=== PATIENT | male | born 1940 | race African-American/Black ===

== ENCOUNTER 2017-11-27 17:51 | Inpatient (IN) | payer MEDICARE ==
[~2017-11-27] VITALS: Ht 172.7 cm; Wt 77.8 kg
[2017-11-27 18:00] VITALS: BP 173/74
[2017-11-27] MEDS ORDERED: UNOBMED (18:00)
[2017-11-27] MEDS ORDERED: Morphine Sulfate 2mg/ml Inj IVP ONE (18:30)
[2017-11-27 18:34] LABS: BASOPHILS % (AUTO) 2.7 % (0.0-2.0); EOSINOPHILS % (AUTO) 6.6 % (0.0-3.0); HEMATOCRIT 35.8 % (42.0-52.0); HEMOGLOBIN 11.7 G/DL (14.2-18.0); LYMPHOCYTES % (AUTO) 20.5 % (20.0-45.0); MEAN CORPUSCULAR VOLUME 96 FL (80-99); NEUTROPHILS % (AUTO) 58.2 % (45.0-75.0); PLATELET COUNT 184 K/UL (150-450); RED BLOOD COUNT 3.72 M/UL (4.70-6.10); WHITE BLOOD COUNT 4.7 K/UL (4.8-10.8)
[2017-11-27 18:46] LABS: ANION GAP 14 mmol/L (5-15); BLOOD UREA NITROGEN 23 mg/dL (7-18); CALCIUM 10.7 MG/DL (8.5-10.1); CARBON DIOXIDE 17 MMOL/L (21-32); CHLORIDE 103 MMOL/L (98-107); CREATININE 6.2 MG/DL (0.55-1.30); POTASSIUM 4.1 MMOL/L (3.5-5.1); SODIUM 134 MMOL/L (136-145)
[2017-11-27 18:59] LABS: ALANINE AMINOTRANSFERASE 8 U/L (12-78); ALBUMIN 3.8 G/DL (3.4-5.0); ALBUMIN/GLOBULIN RATIO 0.8 (1.0-2.7); ALKALINE PHOSPHATASE 109 U/L (46-116); ASPARTATE AMINO TRANSFERASE 21 U/L (15-37); BILIRUBIN,TOTAL 0.5 MG/DL (0.2-1.0); CKMB 1.2 NG/ML (0.0-3.6); CREATINE KINASE 108 U/L (26-308)
[2017-11-27 19:50] VITALS: BP 165/72
--- NOTE | 2017-11-27 21:52 | Consultation ---
Consult Note Consult Note 77 y old- HTN ESRD-CHF- Pacer- DM- Atfib Remote kidney transplant fell a week ago - feels exteremely weak on right side of body , specifically leg- has chest pain in deep breath dialysis graft right arm pacer right upper chest [employer] Repairer Reymundo Taylor at Assessment/Plan ESRD Hypertensive Cardiac disease Weakness right LE Next HD 11/29 Orders given ? Neuro eval? Felice Kumar MD Nov 27, 2017 21:52
[2017-11-27 22:00] VITALS: BP 157/77
[2017-11-27] MEDS ORDERED: HydrALAZINE 25mg tab ORAL PRN (22:00)
[2017-11-27 22:10] VITALS: BP 149/78
--- NOTE | 2017-11-27 22:16 | Infectious Diseases Prog Note ---
Assessment/Plan Problems: (1) Weakness generalized Assessment & Plan: rule out sepsis , will send blood culture and urine culture , with close monitoring of his symptoms (2) Fall Assessment & Plan: with right hip and knee pain , will order x ray to rule out effusion or fracture (3) ESRD (end stage renal disease) Assessment & Plan: on HD , nephrology is following (4) COPD (chronic obstructive pulmonary disease) Assessment & Plan: continue inhalers and oxygen as needed (5) CHF (congestive heart failure) Assessment & Plan: continue HD , with close monitoring of daily weight Subjective Allergies: Coded Allergies: No Known Allergies (Unverified , 11/27/17) Objective Vital Signs Last 24 Hour Vital Signs Date Time Temp Pulse Resp B/P (MAP) Pulse Ox O2 Delivery O2 Flow Rate FiO2 11/27/17 22:00 97.7 60 22 157/77 95 Room Air 97.7 11/27/17 22:00 97.7 60 22 157/77 95 Room Air 11/27/17 19:50 98.5 65 18 165/72 98 Room Air 98.5 11/27/17 19:04 98.5 11/27/17 18:34 98.1 11/27/17 18:00 98.1 69 18 173/74 98 Room Air 98.1 11/27/17 18:00 60 18 Room Air 11/27/17 17:46 98.0 60 18 190/84 98 Room Air 98.1 Height (Feet): 5 Height (Inches): 8.00 Weight (Pounds): 170 Laboratory Tests Test 11/27/17 18:15 White Blood Count 4.7 K/UL (4.8-10.8) L Red Blood Count 3.72 M/UL (4.70-6.10) L Hemoglobin 11.7 G/DL (14.2-18.0) L Hematocrit 35.8 % (42.0-52.0) L Mean Corpuscular Volume 96 FL (80-99) Mean Corpuscular Hemoglobin 31.4 PG (27.0-31.0) H Mean Corpuscular Hemoglobin Concent 32.7 G/DL (32.0-36.0) Red Cell Distribution Width 13.0 % (11.6-14.8) Platelet Count 184 K/UL (150-450) Mean Platelet Volume 5.3 FL (6.5-10.1) L Neutrophils (%) (Auto) 58.2 % (45.0-75.0) Lymphocytes (%) (Auto) 20.5 % (20.0-45.0) Monocytes (%) (Auto) 12.0 % (1.0-10.0) H Eosinophils (%) (Auto) 6.6 % (0.0-3.0) H Basophils (%) (Auto) 2.7 % (0.0-2.0) H Sodium Level 134 MMOL/L (136-145) L Potassium Level 4.1 MMOL/L (3.5-5.1) Chloride Level 103 MMOL/L (98-107) Carbon Dioxide Level 17 MMOL/L (21-32) L Anion Gap 14 mmol/L (5-15) Blood Urea Nitrogen 23 mg/dL (7-18) H Creatinine 6.2 MG/DL (0.55-1.30) H Estimat Glomerular Filtration Rate mL/min (>60) Glucose Level 86 MG/DL (74-106) Calcium Level 10.7 MG/DL (8.5-10.1) H Total Bilirubin 0.5 MG/DL (0.2-1.0) Aspartate Amino Transf (AST/SGOT) 21 U/L (15-37) Alanine Aminotransferase (ALT/SGPT) 8 U/L (12-78) L Alkaline Phosphatase 109 U/L (46-116) Total Creatine Kinase 108 U/L (26-308) Creatine Kinase MB 1.2 NG/ML (0.0-3.6) Creatine Kinase MB Relative Index 1.1 Troponin I 0.045 ng/mL (0.000-0.056) C-Reactive Protein, Quantitative 3.4 mg/dL (0.00-0.90) H Pro-B-Type Natriuretic Peptide 97244 pg/mL (0-125) H Total Protein 8.7 G/DL (6.4-8.2) H Albumin 3.8 G/DL (3.4-5.0) Globulin 4.9 g/dL Albumin/Globulin Ratio 0.8 (1.0-2.7) L Current Medications Medications (Trade) Dose Ordered Sig/Rj Route PRN Reason Start Time Stop Time Status Last Admin Dose Admin Acetaminophen (Tylenol) 650 mg Q4H PRN ORAL Mild Pain/Temp > 100.5 11/27/17 22:00 12/27/17 21:59 Amlodipine Besylate (Norvasc) 10 mg DAILY ORAL 11/28/17 09:00 12/28/17 08:59 Aspirin (ASA) 81 mg DAILY ORAL 11/28/17 09:00 12/28/17 08:59 Atorvastatin Calcium (Lipitor) 20 mg BEDTIME ORAL 11/28/17 21:00 12/28/17 20:59 Docusate Sodium (Colace) 100 mg THREE TIMES A DAY ORAL 11/28/17 09:00 12/28/17 08:59 Heparin Sodium (Porcine) (Heparin 5000 units/ml) 5,000 units EVERY 12 HOURS SUBQ 11/28/17 09:00 12/28/17 08:59 Hydralazine HCl (Apresoline) 25 mg Q4HR PRN ORAL BP over 160 syst 11/27/17 22:00 12/27/17 21:59 Hydralazine HCl (Apresoline) 50 mg Q8HR ORAL 11/27/17 22:00 12/27/17 21:59 Pantoprazole (Protonix) 40 mg DAILY ORAL 11/28/17 09:00 12/28/17 08:59 Sevelamer Carbonate (Renvela) 800 mg THREE TIMES A DAY ORAL 11/28/17 09:00 12/28/17 08:59 Aye Gamboa M.D. Nov 27, 2017 22:16
--- NOTE | 2017-11-27 23:06 | Emergency Room Report ---
History of Present Illness General Chief Complaint: Chest Pain Source: Patient Present Illness HPI 77-year-old male presents ED complaining of chest pain 10 days. Pain needs left-sided, sharp, 7 out of 10, nonradiating. Worse with deep breaths. Denies fevers chills. Denies cough. History of end-stage renal disease. Gets dialysis. States he is compliant with his dialysis. No other aggravating relieving factors. Denies any other associated symptoms Allergies: Coded Allergies: No Known Allergies (Unverified , 11/27/17) Patient History Past Medical History: DM, HTN, CHF, renal disease, dialysis Past Surgical History: none Pertinent Family History: none Social History: Denies: smoking, alcohol use, drug use Immunizations: UTD Reviewed Nursing Documentation: PMH: Agreed; PSxH: Agreed Nursing Documentation-PMH Past Medical History: No History, Except For Hx Cardiac Problems: Yes - CHF dialysis Hx Hypertension: Yes Hx Diabetes: Yes Hx Dialysis: Yes Review of Systems All Other Systems: negative except mentioned in HPI Physical Exam Vital Signs Date Time Temp Pulse Resp B/P (MAP) Pulse Ox O2 Delivery O2 Flow Rate FiO2 11/27/17 17:46 98.0 60 18 190/84 98 Room Air 98.1 Sp02 EP Interpretation: reviewed, normal General Appearance: no apparent distress, alert, GCS 15, non-toxic Head: normocephalic, atraumatic Eyes: bilateral eye normal inspection, bilateral eye PERRL ENT: hearing grossly normal, normal pharynx, no angioedema, normal voice Neck: full range of motion, supple/symm/no masses Respiratory: chest non-tender, lungs clear, normal breath sounds, speaking full sentences Cardiovascular #1: regular rate, rhythm, no edema Cardiovascular #2: 2+ carotid (R), 2+ carotid (L), 2+ radial (R), 2+ radial (L) , 2+ dorsalis pedis (R), 2+ dorsalis pedis (L) Gastrointestinal: normal bowel sounds, non tender, soft, non-distended, no guarding, no rebound Rectal: deferred Genitourinary: normal inspection, no CVA tenderness Musculoskeletal: back normal, gait/station normal, normal range of motion, non- tender Neurologic: alert, oriented x3, responsive, motor strength/tone normal, sensory intact, speech normal Psychiatric: judgement/insight normal, memory normal, mood/affect normal, no suicidal/homicidal ideation Reflexes: 3+ bicep (R), 3+ bicep (L), 3+ tricep (R), 3+ tricep (L), 3+ knee (R) , 3+ knee (L) Skin: normal color, no rash, warm/dry, well hydrated Lymphatic: no adenopathy Medical Decision Making Diagnostic Impression: Primary Impression: Acute coronary syndrome Additional Impressions: CHF (congestive heart failure) Qualified Codes: I50.9 - Heart failure, unspecified ESRD (end stage renal disease) ER Course Hospital Course 77-year-old male presents ED complaining of chest pain. h/o ESRD on dialysis Differential diagnoses include: DE/unstable angina, contusion, muscle strain, PTX, rib fracture Clinical course Patient placed on stretcher. on cardiac care nurse. After initial history and physical I ordered labs, EKG, chest x-ray, morphine labs reviewed- no leukocytosis hb/hct stable, BUN/Cr elevated, K ok, trop 0.045 , BNP elevated EKG - NSR, no acute ischemic changes interpreted by me Chest x-ray- cardiomegaly, pacemaker, no fluid overload given aspirin. Case discussed with Dr. Hoffman and he agreed to accept the patient to his service for further care and support I. I feel this is a highly complex case requiring extensive working including EKG/Rhythm strip, Xray/CT/US, Blood/urine lab work, repeat exams while in ED, and administration of strong opiates/narcotics for pain control, admission to hospital or close patient follow up. Diagnosis - ACS, CHF, ESRD on dialysis admitted to telemetry in serious condition Labs Test 11/27/17 18:15 White Blood Count 4.7 K/UL (4.8-10.8) Red Blood Count 3.72 M/UL (4.70-6.10) Hemoglobin 11.7 G/DL (14.2-18.0) Hematocrit 35.8 % (42.0-52.0) Mean Corpuscular Volume 96 FL (80-99) Mean Corpuscular Hemoglobin 31.4 PG (27.0-31.0) Mean Corpuscular Hemoglobin Concent 32.7 G/DL (32.0-36.0) Red Cell Distribution Width 13.0 % (11.6-14.8) Platelet Count 184 K/UL (150-450) Mean Platelet Volume 5.3 FL (6.5-10.1) Neutrophils (%) (Auto) 58.2 % (45.0-75.0) Lymphocytes (%) (Auto) 20.5 % (20.0-45.0) Monocytes (%) (Auto) 12.0 % (1.0-10.0) Eosinophils (%) (Auto) 6.6 % (0.0-3.0) Basophils (%) (Auto) 2.7 % (0.0-2.0) Sodium Level 134 MMOL/L (136-145) Potassium Level 4.1 MMOL/L (3.5-5.1) Chloride Level 103 MMOL/L (98-107) Carbon Dioxide Level 17 MMOL/L (21-32) Anion Gap 14 mmol/L (5-15) Blood Urea Nitrogen 23 mg/dL (7-18) Creatinine 6.2 MG/DL (0.55-1.30) Estimat Glomerular Filtration Rate mL/min (>60) Glucose Level 86 MG/DL (74-106) Calcium Level 10.7 MG/DL (8.5-10.1) Total Bilirubin 0.5 MG/DL (0.2-1.0) Aspartate Amino Transf (AST/SGOT) 21 U/L (15-37) Alanine Aminotransferase (ALT/SGPT) 8 U/L (12-78) Alkaline Phosphatase 109 U/L (46-116) Total Creatine Kinase 108 U/L (26-308) Creatine Kinase MB 1.2 NG/ML (0.0-3.6) Creatine Kinase MB Relative Index 1.1 Troponin I 0.045 ng/mL (0.000-0.056) C-Reactive Protein, Quantitative 3.4 mg/dL (0.00-0.90) Pro-B-Type Natriuretic Peptide 76731 pg/mL (0-125) Total Protein 8.7 G/DL (6.4-8.2) Albumin 3.8 G/DL (3.4-5.0) Globulin 4.9 g/dL Albumin/Globulin Ratio 0.8 (1.0-2.7) EKG Diagnostic Results Rate: normal Rhythm: NSR ST Segments: no acute changes ASA given to the pt in ED: Yes Rhythm Strip Diag. Results EP Interpretation: yes Rhythm: NSR, no PVC's, no ectopy Chest X-Ray Diagnostic Results Chest X-Ray Diagnostic Results : Chest X-Ray Ordered: Yes # of Views/Limited/Complete: 1 View Indication: Chest Pain EP Interpretation: Yes Interpretation: no consolidation, no effusion, no pneumothorax, other - cardiomegaly. pacemaker Impression: Other - chf Electronically Signed by: Electronically signed by Mike Jerez MD Last Vital Signs Date Time Temp Pulse Resp B/P (MAP) Pulse Ox O2 Delivery O2 Flow Rate FiO2 11/27/17 22:00 97.7 60 22 157/77 95 Room Air 97.7 Status: improved Disposition: ADMITTED INPATIENT Condition: Serious Referrals: LORIN PRAJAPATI (PCP) Mike Jerez MD Nov 27, 2017 23:06
[2017-11-27] MEDS: HydrALAZINE 50mg tab ORAL SCH (23:25)
[2017-11-28] VITALS: BP 151/78
[2017-11-28 04:00] VITALS: BP 153/64
[2017-11-28 05:48] LABS: BASOPHILS % (AUTO) 1.4 % (0.0-2.0); EOSINOPHILS % (AUTO) 10.3 % (0.0-3.0); HEMATOCRIT 33.9 % (42.0-52.0); HEMOGLOBIN 11.1 G/DL (14.2-18.0); MEAN CORPUSCULAR VOLUME 94 FL (80-99); MONOCYTES % (AUTO) 12.9 % (1.0-10.0); NEUTROPHILS % (AUTO) 55.3 % (45.0-75.0); PLATELET COUNT 190 K/UL (150-450); RED CELL DISTRIBUTION WIDTH 13.1 % (11.6-14.8); WHITE BLOOD COUNT 4.3 K/UL (4.8-10.8)
[2017-11-28] MEDS: HydrALAZINE 50mg tab ORAL SCH ×3 (06:11→22:13)
[2017-11-28 06:35] LABS: ALANINE AMINOTRANSFERASE 15 U/L (12-78); ALBUMIN 3.4 G/DL (3.4-5.0); ALBUMIN/GLOBULIN RATIO 0.8 (1.0-2.7); ALKALINE PHOSPHATASE 96 U/L (46-116); ANION GAP 13 mmol/L (5-15); ASPARTATE AMINO TRANSFERASE 15 U/L (15-37); BILIRUBIN,TOTAL 0.3 MG/DL (0.2-1.0); BLOOD UREA NITROGEN 30 mg/dL (7-18); CALCIUM 9.9 MG/DL (8.5-10.1); CARBON DIOXIDE 22 MMOL/L (21-32); CHLORIDE 106 MMOL/L (98-107); CHOLESTEROL 145 MG/DL (< 200); CREATINE KINASE 55 U/L (26-308); CREATININE 8.1 MG/DL (0.55-1.30); FERRITIN 613 NG/ML (8-388); GAMMA GLUTAMYL TRANSPEPTIDASE 43 U/L (5-85); HDL CHOLESTEROL 52 MG/DL (40-60); PHOSPHORUS 3.4 MG/DL (2.5-4.9); POTASSIUM 3.5 MMOL/L (3.5-5.1); SODIUM 140 MMOL/L (136-145); TRIGLYCERIDES 71 MG/DL (30-150)
[2017-11-28 07:58] VITALS: BP 154/64
--- NOTE | 2017-11-28 08:06 | Cardiology Progress Note ---
Assessment/Plan Assessment/Plan The patient is seen and examined, full consult note will be dictated. Objective Last 24 Hour Vital Signs Date Time Temp Pulse Resp B/P (MAP) Pulse Ox O2 Delivery O2 Flow Rate FiO2 11/28/17 07:58 97.0 61 20 154/64 (94) 99 97.0 11/28/17 06:11 143/75 11/28/17 04:00 98.0 56 20 153/64 (93) 97 98.0 11/28/17 04:00 60 11/28/17 00:00 99.0 62 20 151/78 (102) 98 99.0 11/28/17 00:00 60 11/27/17 23:25 151/78 11/27/17 22:47 Room Air 11/27/17 22:15 62 11/27/17 22:10 97.8 63 23 149/78 (101) 97 97.8 11/27/17 22:00 97.7 60 22 157/77 95 Room Air 97.7 11/27/17 22:00 97.7 60 22 157/77 95 Room Air 11/27/17 19:50 98.5 65 18 165/72 98 Room Air 98.5 11/27/17 19:04 98.5 11/27/17 18:34 98.1 11/27/17 18:00 98.1 69 18 173/74 98 Room Air 98.1 11/27/17 18:00 60 18 Room Air 11/27/17 17:46 98.0 60 18 190/84 98 Room Air 98.1 Intake and Output 11/27/17 11/28/17 19:00 07:00 Intake Total 320 ml Balance 320 ml Intake Oral 320 ml Laboratory Tests Test 11/27/17 18:15 11/28/17 05:20 White Blood Count 4.7 K/UL (4.8-10.8) L 4.3 K/UL (4.8-10.8) L Red Blood Count 3.72 M/UL (4.70-6.10) L 3.60 M/UL (4.70-6.10) L Hemoglobin 11.7 G/DL (14.2-18.0) L 11.1 G/DL (14.2-18.0) L Hematocrit 35.8 % (42.0-52.0) L 33.9 % (42.0-52.0) L Mean Corpuscular Volume 96 FL (80-99) 94 FL (80-99) Mean Corpuscular Hemoglobin 31.4 PG (27.0-31.0) H 30.8 PG (27.0-31.0) Mean Corpuscular Hemoglobin Concent 32.7 G/DL (32.0-36.0) 32.7 G/DL (32.0-36.0) Red Cell Distribution Width 13.0 % (11.6-14.8) 13.1 % (11.6-14.8) Platelet Count 184 K/UL (150-450) 190 K/UL (150-450) Mean Platelet Volume 5.3 FL (6.5-10.1) L 5.2 FL (6.5-10.1) L Neutrophils (%) (Auto) 58.2 % (45.0-75.0) 55.3 % (45.0-75.0) Lymphocytes (%) (Auto) 20.5 % (20.0-45.0) 20.0 % (20.0-45.0) Monocytes (%) (Auto) 12.0 % (1.0-10.0) H 12.9 % (1.0-10.0) H Eosinophils (%) (Auto) 6.6 % (0.0-3.0) H 10.3 % (0.0-3.0) H Basophils (%) (Auto) 2.7 % (0.0-2.0) H 1.4 % (0.0-2.0) Sodium Level 134 MMOL/L (136-145) L 140 MMOL/L (136-145) Potassium Level 4.1 MMOL/L (3.5-5.1) 3.5 MMOL/L (3.5-5.1) Chloride Level 103 MMOL/L (98-107) 106 MMOL/L (98-107) Carbon Dioxide Level 17 MMOL/L (21-32) L 22 MMOL/L (21-32) Anion Gap 14 mmol/L (5-15) 13 mmol/L (5-15) Blood Urea Nitrogen 23 mg/dL (7-18) H 30 mg/dL (7-18) H Creatinine 6.2 MG/DL (0.55-1.30) H 8.1 MG/DL (0.55-1.30) H Estimat Glomerular Filtration Rate mL/min (>60) mL/min (>60) Glucose Level 86 MG/DL (74-106) 96 MG/DL (74-106) Calcium Level 10.7 MG/DL (8.5-10.1) H 9.9 MG/DL (8.5-10.1) Total Bilirubin 0.5 MG/DL (0.2-1.0) 0.3 MG/DL (0.2-1.0) Aspartate Amino Transf (AST/SGOT) 21 U/L (15-37) 15 U/L (15-37) Alanine Aminotransferase (ALT/SGPT) 8 U/L (12-78) L 15 U/L (12-78) Alkaline Phosphatase 109 U/L (46-116) 96 U/L (46-116) Total Creatine Kinase 108 U/L (26-308) 55 U/L (26-308) Creatine Kinase MB 1.2 NG/ML (0.0-3.6) Creatine Kinase MB Relative Index 1.1 Troponin I 0.045 ng/mL (0.000-0.056) 0.041 ng/mL (0.000-0.056) C-Reactive Protein, Quantitative 3.4 mg/dL (0.00-0.90) H Pro-B-Type Natriuretic Peptide 72310 pg/mL (0-125) H 92003 pg/mL (0-125) H Total Protein 8.7 G/DL (6.4-8.2) H 7.6 G/DL (6.4-8.2) Albumin 3.8 G/DL (3.4-5.0) 3.4 G/DL (3.4-5.0) Globulin 4.9 g/dL 4.2 g/dL Albumin/Globulin Ratio 0.8 (1.0-2.7) L 0.8 (1.0-2.7) L Hemoglobin A1c 5.5 % (4.3-6.0) Uric Acid 2.5 MG/DL (2.6-7.2) L Phosphorus Level 3.4 MG/DL (2.5-4.9) Magnesium Level 2.1 MG/DL (1.8-2.4) Ferritin 613 NG/ML (8-388) H Gamma Glutamyl Transpeptidase 43 U/L (5-85) Triglycerides Level 71 MG/DL (30-150) Cholesterol Level 145 MG/DL (< 200) LDL Cholesterol 72 mg/dL (<100) HDL Cholesterol 52 MG/DL (40-60) Cholesterol/HDL Ratio 2.8 (3.3-4.4) L Vitamin B12 Level 1159 PG/ML (193-986) H Folate 16.6 NG/ML (8.6-58.9) Thyroid Stimulating Hormone (TSH) 2.803 uiU/mL (0.358-3.740) William Sheets MD Nov 28, 2017 08:06
[2017-11-28] MEDS: Aspirin Baby 81mg ORAL SCH (08:33)
[2017-11-28] MEDS: Docusate 100mg cap ORAL SCH ×3 (08:33→18:12)
[2017-11-28] MEDS: Heparin 5000 units/ml inj SUBQ SCH ×2 (08:40→20:30)
--- NOTE | 2017-11-28 11:08 | Diagnostic Imaging Report ---
Indication: Chest pain Comparison: None A single view chest radiograph was obtained. Findings: There is a pacemaker on the right with 2 leads one projected over the right HM the other over the right ventricle. Cardiac silhouette is borderline enlarged but probably appropriate for age. Lungs are clear. Bones are unremarkable IMPRESSION: No acute disease
--- NOTE | 2017-11-28 11:45 | Consultation ---
DATE OF CONSULTATION: 11/28/2017 CARDIOLOGY CONSULTATION CONSULTING PHYSICIAN: William Sheets M.D. REFERRING PHYSICIAN: Nelida Hoffman M.D. REASON FOR CONSULTATION: Management of chest pain. HISTORY OF PRESENT ILLNESS: The patient is a very unfortunate 77-year-old gentleman, who presents to the hospital with chest pain ten days ago after he had an episode of fall sustaining injury to the left chest wall. The patient states that the pain is pleuritic in nature, 7/10, not associated with shortness of breath. The patient is concerned about the chest pain and history of heart murmur that he has had for some time. He states that he was following with electrical instrument maker at [facility] and last visit was just over a year ago. He has history of end-stage renal disease and he gets dialysis on a regular basis. PAST MEDICAL HISTORY: Diabetes mellitus, hypertension, history of congestive heart failure, history of end-stage renal disease on hemodialysis, and history of heart murmur. PAST SURGICAL HISTORY: None except right arm AV fistula creation. MEDICATIONS: List of medication, the patient does not have the list of medication at this time. However, in the hospital, he was started on acetaminophen, amlodipine, aspirin, atorvastatin, Colace, hydralazine, irbesartan, pantoprazole, and Renvela. ALLERGIES: No known drug allergies. FAMILY HISTORY: No premature coronary artery disease in the first-degree relatives. SOCIAL HISTORY: Denies any tobacco, alcohol, or illicit drug use. REVIEW OF SYSTEMS: HEENT: Denies any headache, diplopia, or blurred vision. CONSTITUTIONAL: Denies any fever, chills, night sweats, or weight loss. CARDIOVASCULAR: Complains of pleuritic chest pain, as mentioned. Denies any shortness of breath, PND, orthopnea, leg swelling, or syncope. PULMONARY: Denies any cough, hemoptysis, or wheezing. GASTROINTESTINAL: Denies any nausea, vomiting, diarrhea, constipation, abdominal pain, or GI bleed. GENITOURINARY: Denies any hematuria, dysuria, or incontinence, on hemodialysis three days a week. NEUROLOGY: Denies any motor dysfunction, sensory deficit, or altered speech. PHYSICAL EXAMINATION: VITAL SIGNS: Blood pressure was 190/84, respirations of 18, pulse of 60, O2 saturation 98% on room air, and temperature 98.0 degrees Fahrenheit. GENERAL: The patient is a very unfortunate 77-year-old gentleman, in no apparent respiratory distress. Alert and oriented x4. HEENT: Atraumatic and normocephalic. Pupils are equal, round, and reactive to light and accommodation. Extraocular muscles intact. NECK: JVP less than 5 cm. Bilateral carotid bruits. CARDIOVASCULAR: Normal S1, S2. There is a 3/6 ejection systolic murmur at the left sternal border with radiation to the carotid. Irregular rate and rhythm. LUNGS: Clear to auscultation bilaterally. CHEST: Does have in the right pectoral area. ABDOMEN: Soft, nontender, and nondistended. No hepatosplenomegaly. Positive bowel sounds. EXTREMITIES: Right upper extremity AV fistula is present with a good thrill. Lower extremity, no evidence of edema, clubbing, or cyanosis. LABORATORY FINDINGS: WBC is 4.7, hemoglobin 11.7, hematocrit 35.8, and platelet count was 184. Sodium was 134, potassium 4.1, chloride 103, bicarbonate 17, BUN of 23, creatinine 6.2, glucose 86, calcium is 10.7. Troponin I x2 negative. ProBNP was 18,997. Chest x-ray, imaging report both are not available. ASSESSMENT AND PLAN: The patient is a very unfortunate, but very pleasant 77-year-old gentleman, was seen in Cardiology consultation at request of Dr. Hoffman. 1. Noncardiac chest pain. The chest pain occurred ten days ago after he fell and hit his chest wall against the ground. Chest pain is pleuritic now. Acute myocardial infarction is ruled out. No stress test is indicated at this time. However, continue with 2D echocardiography for assessment of LV systolic function. 2. Most likely severe aortic stenosis given the characteristic of heart murmur, a 2D echocardiography will shed light on this condition. 3. End-stage renal disease on hemodialysis. 4. History of hypertension. I would like to thank, Dr. Hoffman, for allowing me to participate in the care of this patient. William Sheets M.D. DR: KATLYN JOB#: [id number] CC:
[2017-11-28 12:00] VITALS: BP 150/63
--- NOTE | 2017-11-28 14:04 | History & Physical ---
History and Physical History & Physicial seen and examined. Dict # [id number] Nelida Hoffman MD Nov 28, 2017 14:04
--- NOTE | 2017-11-28 14:04 | General Progress Note ---
Assessment/Plan Assessment/Plan S: my pain is better O: appears comfortable, moderte pleuritic right sided chest pain PHYSICAL EXAMINATION: HEENT: Atraumatic and normocephalic. CHEST: mild ecchymosis in right chest wall, Clear to auscultation. No wheezing. No crackles. HEART: S1 and S2. Regular rate and rhythm. ABDOMEN: Soft. Bowel sounds are normal. No gross organomegaly. NEUROLOGIC: Awake, alert, and oriented x3. MS: diffuse joint hypertrophy, bilateral, ambulates with a cane IMAGING: Chest x-ray dated November 28 reviewed and it is unremarkable. Meds: reviewed and reconciled ASSESSMENT AND PLAN: 1. Chest pain , mod risk for underlying ACS 2. Fall with Trauma. 3. Diabetes. 4. End-stage renal disease, on hemodialysis. 5. Hyperlipidemia. 6. GI and DVT prophylaxis. 7. Knee OA- Diffuse PLAN OF CARE: continue TEle monitoring, pending cardiology input. We will continue with hemodialysis. Subjective Allergies: Coded Allergies: No Known Allergies (Unverified , 11/27/17) Objective Last 24 Hour Vital Signs Date Time Temp Pulse Resp B/P (MAP) Pulse Ox O2 Delivery O2 Flow Rate FiO2 11/28/17 12:00 97.3 62 20 150/63 (92) 100 97.3 11/28/17 08:34 61 154/64 11/28/17 08:33 154/64 11/28/17 08:20 Room Air 11/28/17 07:58 97.0 61 20 154/64 (94) 99 97.0 11/28/17 07:42 60 11/28/17 06:11 143/75 11/28/17 04:00 98.0 56 20 153/64 (93) 97 98.0 11/28/17 04:00 60 11/28/17 00:00 99.0 62 20 151/78 (102) 98 99.0 11/28/17 00:00 60 11/27/17 23:25 151/78 11/27/17 22:47 Room Air 11/27/17 22:15 62 11/27/17 22:10 97.8 63 23 149/78 (101) 97 97.8 11/27/17 22:00 97.7 60 22 157/77 95 Room Air 97.7 10/22/18 22:00 97.7 60 22 157/77 95 Room Air 11/27/17 19:50 98.5 65 18 165/72 98 Room Air 98.5 11/27/17 19:04 98.5 11/27/17 18:34 98.1 11/27/17 18:00 98.1 69 18 173/74 98 Room Air 98.1 11/27/17 18:00 60 18 Room Air 11/27/17 17:46 98.0 60 18 190/84 98 Room Air 98.1 Intake and Output 11/27/17 11/28/17 19:00 07:00 Intake Total 320 ml Balance 320 ml Intake Oral 320 ml Laboratory Tests 11/27/17 18:15: White Blood Count 4.7L, Red Blood Count 3.72L, Hemoglobin 11.7L, Hematocrit 35.8L, Mean Corpuscular Volume 96, Mean Corpuscular Hemoglobin 31.4H, Mean Corpuscular Hemoglobin Concent 32.7, Red Cell Distribution Width 13.0, Platelet Count 184, Mean Platelet Volume 5.3L, Neutrophils (%) (Auto) 58.2, Lymphocytes ( %) (Auto) 20.5, Monocytes (%) (Auto) 12.0H, Eosinophils (%) (Auto) 6.6H, Basophils (%) (Auto) 2.7H, Sodium Level 134L, Potassium Level 4.1, Chloride Level 103, Carbon Dioxide Level 17L, Anion Gap 14, Blood Urea Nitrogen 23H, Creatinine 6.2H, Estimat Glomerular Filtration Rate , Glucose Level 86, Calcium Level 10.7H, Total Bilirubin 0.5, Aspartate Amino Transf (AST/SGOT) 21, Alanine Aminotransferase (ALT/SGPT) 8L, Alkaline Phosphatase 109, Total Creatine Kinase 108, Creatine Kinase MB 1.2, Creatine Kinase MB Relative Index 1.1, Troponin I 0.045, C-Reactive Protein, Quantitative 3.4H, Pro-B-Type Natriuretic Peptide 96901O, Total Protein 8.7H, Albumin 3.8, Globulin 4.9, Albumin/Globulin Ratio 0.8L 11/28/17 05:20: White Blood Count 4.3L, Red Blood Count 3.60L, Hemoglobin 11.1L, Hematocrit 33.9L, Mean Corpuscular Volume 94, Mean Corpuscular Hemoglobin 30.8, Mean Corpuscular Hemoglobin Concent 32.7, Red Cell Distribution Width 13.1, Platelet Count 190, Mean Platelet Volume 5.2L, Neutrophils (%) (Auto) 55.3, Lymphocytes ( %) (Auto) 20.0, Monocytes (%) (Auto) 12.9H, Eosinophils (%) (Auto) 10.3H, Basophils (%) (Auto) 1.4, Sodium Level 140, Potassium Level 3.5, Chloride Level 106, Carbon Dioxide Level 22, Anion Gap 13, Blood Urea Nitrogen 30H, Creatinine 8.1H, Estimat Glomerular Filtration Rate , Glucose Level 96, Calcium Level 9.9, Total Bilirubin 0.3, Aspartate Amino Transf (AST/SGOT) 15, Alanine Aminotransferase (ALT/SGPT) 15, Alkaline Phosphatase 96, Total Creatine Kinase 55, Troponin I 0.041, Pro-B-Type Natriuretic Peptide 15526R, Total Protein 7.6, Albumin 3.4, Globulin 4.2, Albumin/Globulin Ratio 0.8L, Hemoglobin A1c 5.5, Uric Acid 2.5L, Phosphorus Level 3.4, Magnesium Level 2.1, Ferritin 613H, Gamma Glutamyl Transpeptidase 43, Triglycerides Level 71, Cholesterol Level 145, LDL Cholesterol 72, HDL Cholesterol 52, Cholesterol/HDL Ratio 2.8L, Vitamin B12 Level 1159H, Folate 16.6, Thyroid Stimulating Hormone (TSH) 2.803 Height (Feet): 5 Height (Inches): 8.00 Weight (Pounds): 77 Nelida Hoffman MD Nov 28, 2017 14:04
--- NOTE | 2017-11-28 14:51 | Nephrology Progress Note ---
Assessment/Plan Problem List: (1) ESRD (end stage renal disease) (2) Fall (3) CHF (congestive heart failure) (4) Weakness generalized (5) COPD (chronic obstructive pulmonary disease) Assessment unchanged Plan 77 y old- HTN ESRD- CHF- Pacer- DM- Atfib Remote kidney transplant fell a week ago - Hypertensive Cardiac disease Weakness right LE Next HD 11/29 ? Neuro eval? PT OT 2D echo Subjective ROS Limited/Unobtainable: No Constitutional: Reports: malaise, weakness Objective Objective Last 24 Hour Vital Signs Date Time Temp Pulse Resp B/P (MAP) Pulse Ox O2 Delivery O2 Flow Rate FiO2 11/28/17 14:20 150/63 11/28/17 12:00 97.3 62 20 150/63 (92) 100 97.3 11/28/17 11:34 60 11/28/17 08:34 61 154/64 11/28/17 08:33 154/64 11/28/17 08:20 Room Air 11/28/17 07:58 97.0 61 20 154/64 (94) 99 97.0 11/28/17 07:42 60 11/28/17 06:11 143/75 11/28/17 04:00 98.0 56 20 153/64 (93) 97 98.0 11/28/17 04:00 60 11/28/17 00:00 99.0 62 20 151/78 (102) 98 99.0 11/28/17 00:00 60 11/27/17 23:25 151/78 11/27/17 22:47 Room Air 11/27/17 22:15 62 11/27/17 22:10 97.8 63 23 149/78 (101) 97 97.8 11/27/17 22:00 97.7 60 22 157/77 95 Room Air 97.7 11/27/17 22:00 97.7 60 22 157/77 95 Room Air 11/27/17 19:50 98.5 65 18 165/72 98 Room Air 98.5 11/27/17 19:04 98.5 11/27/17 18:34 98.1 11/27/17 18:00 98.1 69 18 173/74 98 Room Air 98.1 11/27/17 18:00 60 18 Room Air 11/27/17 17:46 98.0 60 18 190/84 98 Room Air 98.1 Intake and Output 11/27/17 11/28/17 19:00 07:00 Intake Total 320 ml Balance 320 ml Intake Oral 320 ml Laboratory Tests 11/27/17 18:15: White Blood Count 4.7L, Red Blood Count 3.72L, Hemoglobin 11.7L, Hematocrit 35.8L, Mean Corpuscular Volume 96, Mean Corpuscular Hemoglobin 31.4H, Mean Corpuscular Hemoglobin Concent 32.7, Red Cell Distribution Width 13.0, Platelet Count 184, Mean Platelet Volume 5.3L, Neutrophils (%) (Auto) 58.2, Lymphocytes ( %) (Auto) 20.5, Monocytes (%) (Auto) 12.0H, Eosinophils (%) (Auto) 6.6H, Basophils (%) (Auto) 2.7H, Sodium Level 134L, Potassium Level 4.1, Chloride Level 103, Carbon Dioxide Level 17L, Anion Gap 14, Blood Urea Nitrogen 23H, Creatinine 6.2H, Estimat Glomerular Filtration Rate , Glucose Level 86, Calcium Level 10.7H, Total Bilirubin 0.5, Aspartate Amino Transf (AST/SGOT) 21, Alanine Aminotransferase (ALT/SGPT) 8L, Alkaline Phosphatase 109, Total Creatine Kinase 108, Creatine Kinase MB 1.2, Creatine Kinase MB Relative Index 1.1, Troponin I 0.045, C-Reactive Protein, Quantitative 3.4H, Pro-B-Type Natriuretic Peptide 55500Q, Total Protein 8.7H, Albumin 3.8, Globulin 4.9, Albumin/Globulin Ratio 0.8L 11/28/17 05:20: White Blood Count 4.3L, Red Blood Count 3.60L, Hemoglobin 11.1L, Hematocrit 33.9L, Mean Corpuscular Volume 94, Mean Corpuscular Hemoglobin 30.8, Mean Corpuscular Hemoglobin Concent 32.7, Red Cell Distribution Width 13.1, Platelet Count 190, Mean Platelet Volume 5.2L, Neutrophils (%) (Auto) 55.3, Lymphocytes ( %) (Auto) 20.0, Monocytes (%) (Auto) 12.9H, Eosinophils (%) (Auto) 10.3H, Basophils (%) (Auto) 1.4, Sodium Level 140, Potassium Level 3.5, Chloride Level 106, Carbon Dioxide Level 22, Anion Gap 13, Blood Urea Nitrogen 30H, Creatinine 8.1H, Estimat Glomerular Filtration Rate , Glucose Level 96, Calcium Level 9.9, Total Bilirubin 0.3, Aspartate Amino Transf (AST/SGOT) 15, Alanine Aminotransferase (ALT/SGPT) 15, Alkaline Phosphatase 96, Total Creatine Kinase 55, Troponin I 0.041, Pro-B-Type Natriuretic Peptide 15507T, Total Protein 7.6, Albumin 3.4, Globulin 4.2, Albumin/Globulin Ratio 0.8L, Hemoglobin A1c 5.5, Uric Acid 2.5L, Phosphorus Level 3.4, Magnesium Level 2.1, Ferritin 613H, Gamma Glutamyl Transpeptidase 43, Triglycerides Level 71, Cholesterol Level 145, LDL Cholesterol 72, HDL Cholesterol 52, Cholesterol/HDL Ratio 2.8L, Vitamin B12 Level 1159H, Folate 16.6, Thyroid Stimulating Hormone (TSH) 2.803 Height (Feet): 5 Height (Inches): 8.00 Weight (Pounds): 77 General Appearance: no apparent distress Cardiovascular: normal rate Respiratory/Chest: lungs clear Abdomen: soft Extremities: other - weak Felice Kumar MD Nov 28, 2017 14:51
[2017-11-28 16:00] VITALS: BP 139/69
--- NOTE | 2017-11-28 16:28 | Infectious Diseases Prog Note ---
Assessment/Plan Problems: (1) Weakness generalized Assessment & Plan: rule out sepsis , await blood culture and urine culture , with close monitoring of his symptoms (2) Fall Assessment & Plan: with right hip and knee pain , x ray to rule out effusion or fracture is pending (3) ESRD (end stage renal disease) Assessment & Plan: on HD , nephrology is following (4) COPD (chronic obstructive pulmonary disease) Assessment & Plan: continue inhalers and oxygen as needed (5) CHF (congestive heart failure) Assessment & Plan: continue HD , with close monitoring of daily weight Subjective Constitutional: Reports: no symptoms HEENT: Reports: no symptoms Respiratory: Reports: productive cough Breasts: Reports: no symptoms Cardiovascular: Reports: chest pain Gastrointestinal/Abdominal: Reports: no symptoms Genitourinary: Reports: no symptoms Neurologic: Reports: no symptoms Psychiatric: Reports: no symptoms Skin: Reports: no symptoms Endocrine: Reports: no symptoms Hematologic: Reports: no symptoms Musculoskeletal: Reports: pain, stiffness, other - right knee and hip joint Allergies: Coded Allergies: No Known Allergies (Unverified , 11/27/17) Objective Vital Signs Last 24 Hour Vital Signs Date Time Temp Pulse Resp B/P (MAP) Pulse Ox O2 Delivery O2 Flow Rate FiO2 11/28/17 14:20 150/63 11/28/17 12:00 97.3 62 20 150/63 (92) 100 97.3 11/28/17 11:34 60 11/28/17 08:34 61 154/64 11/28/17 08:33 154/64 11/28/17 08:20 Room Air 11/28/17 07:58 97.0 61 20 154/64 (94) 99 97.0 11/28/17 07:42 60 11/28/17 06:11 143/75 11/28/17 04:00 98.0 56 20 153/64 (93) 97 98.0 11/28/17 04:00 60 11/28/17 00:00 99.0 62 20 151/78 (102) 98 99.0 11/28/17 00:00 60 11/27/17 23:25 151/78 11/27/17 22:47 Room Air 11/27/17 22:15 62 11/27/17 22:10 97.8 63 23 149/78 (101) 97 97.8 11/27/17 22:00 97.7 60 22 157/77 95 Room Air 97.7 11/27/17 22:00 97.7 60 22 157/77 95 Room Air 11/27/17 19:50 98.5 65 18 165/72 98 Room Air 98.5 11/27/17 19:04 98.5 11/27/17 18:34 98.1 11/27/17 18:00 98.1 69 18 173/74 98 Room Air 98.1 11/27/17 18:00 60 18 Room Air 11/27/17 17:46 98.0 60 18 190/84 98 Room Air 98.1 Height (Feet): 5 Height (Inches): 8.00 Weight (Pounds): 77 General Appearance: WD/WN, no acute distress HEENT: normocephalic, atraumatic, anicteric, mucous membranes moist, PERRL Respiratory/Chest: chest wall non-tender, lungs clear, normal breath sounds, no respiratory distress, no accessory muscle use Cardiovascular: normal peripheral pulses, normal rate, regular rhythm, no gallop/murmur, no JVD Abdomen: normal bowel sounds, soft, non tender, no organomegaly, non distended , no mass, no scars Extremities: no cyanosis, no clubbing Skin: no rash, no lesions, no ulcers Neurologic/Psychiatric: alert, oriented x 3, responsive Lymphatic: no neck adenopathy, no groin adenopathy Musculoskeletal: normal muscle bulk, no effusion Laboratory Tests Test 11/27/17 18:15 11/28/17 05:20 White Blood Count 4.7 K/UL (4.8-10.8) L 4.3 K/UL (4.8-10.8) L Red Blood Count 3.72 M/UL (4.70-6.10) L 3.60 M/UL (4.70-6.10) L Hemoglobin 11.7 G/DL (14.2-18.0) L 11.1 G/DL (14.2-18.0) L Hematocrit 35.8 % (42.0-52.0) L 33.9 % (42.0-52.0) L Mean Corpuscular Volume 96 FL (80-99) 94 FL (80-99) Mean Corpuscular Hemoglobin 31.4 PG (27.0-31.0) H 30.8 PG (27.0-31.0) Mean Corpuscular Hemoglobin Concent 32.7 G/DL (32.0-36.0) 32.7 G/DL (32.0-36.0) Red Cell Distribution Width 13.0 % (11.6-14.8) 13.1 % (11.6-14.8) Platelet Count 184 K/UL (150-450) 190 K/UL (150-450) Mean Platelet Volume 5.3 FL (6.5-10.1) L 5.2 FL (6.5-10.1) L Neutrophils (%) (Auto) 58.2 % (45.0-75.0) 55.3 % (45.0-75.0) Lymphocytes (%) (Auto) 20.5 % (20.0-45.0) 20.0 % (20.0-45.0) Monocytes (%) (Auto) 12.0 % (1.0-10.0) H 12.9 % (1.0-10.0) H Eosinophils (%) (Auto) 6.6 % (0.0-3.0) H 10.3 % (0.0-3.0) H Basophils (%) (Auto) 2.7 % (0.0-2.0) H 1.4 % (0.0-2.0) Sodium Level 134 MMOL/L (136-145) L 140 MMOL/L (136-145) Potassium Level 4.1 MMOL/L (3.5-5.1) 3.5 MMOL/L (3.5-5.1) Chloride Level 103 MMOL/L (98-107) 106 MMOL/L (98-107) Carbon Dioxide Level 17 MMOL/L (21-32) L 22 MMOL/L (21-32) Anion Gap 14 mmol/L (5-15) 13 mmol/L (5-15) Blood Urea Nitrogen 23 mg/dL (7-18) H 30 mg/dL (7-18) H Creatinine 6.2 MG/DL (0.55-1.30) H 8.1 MG/DL (0.55-1.30) H Estimat Glomerular Filtration Rate mL/min (>60) mL/min (>60) Glucose Level 86 MG/DL (74-106) 96 MG/DL (74-106) Calcium Level 10.7 MG/DL (8.5-10.1) H 9.9 MG/DL (8.5-10.1) Total Bilirubin 0.5 MG/DL (0.2-1.0) 0.3 MG/DL (0.2-1.0) Aspartate Amino Transf (AST/SGOT) 21 U/L (15-37) 15 U/L (15-37) Alanine Aminotransferase (ALT/SGPT) 8 U/L (12-78) L 15 U/L (12-78) Alkaline Phosphatase 109 U/L (46-116) 96 U/L (46-116) Total Creatine Kinase 108 U/L (26-308) 55 U/L (26-308) Creatine Kinase MB 1.2 NG/ML (0.0-3.6) Creatine Kinase MB Relative Index 1.1 Troponin I 0.045 ng/mL (0.000-0.056) 0.041 ng/mL (0.000-0.056) C-Reactive Protein, Quantitative 3.4 mg/dL (0.00-0.90) H Pro-B-Type Natriuretic Peptide 31213 pg/mL (0-125) H 21367 pg/mL (0-125) H Total Protein 8.7 G/DL (6.4-8.2) H 7.6 G/DL (6.4-8.2) Albumin 3.8 G/DL (3.4-5.0) 3.4 G/DL (3.4-5.0) Globulin 4.9 g/dL 4.2 g/dL Albumin/Globulin Ratio 0.8 (1.0-2.7) L 0.8 (1.0-2.7) L Hemoglobin A1c 5.5 % (4.3-6.0) Uric Acid 2.5 MG/DL (2.6-7.2) L Phosphorus Level 3.4 MG/DL (2.5-4.9) Magnesium Level 2.1 MG/DL (1.8-2.4) Ferritin 613 NG/ML (8-388) H Gamma Glutamyl Transpeptidase 43 U/L (5-85) Triglycerides Level 71 MG/DL (30-150) Cholesterol Level 145 MG/DL (< 200) LDL Cholesterol 72 mg/dL (<100) HDL Cholesterol 52 MG/DL (40-60) Cholesterol/HDL Ratio 2.8 (3.3-4.4) L Vitamin B12 Level 1159 PG/ML (193-986) H Folate 16.6 NG/ML (8.6-58.9) Thyroid Stimulating Hormone (TSH) 2.803 uiU/mL (0.358-3.740) Current Medications Medications (Trade) Dose Ordered Sig/Rj Route PRN Reason Start Time Stop Time Status Last Admin Dose Admin Acetaminophen (Tylenol) 650 mg Q4H PRN ORAL Mild Pain/Temp > 100.5 11/27/17 22:00 12/27/17 21:59 Amlodipine Besylate (Norvasc) 10 mg DAILY ORAL 11/28/17 09:00 12/28/17 08:59 11/28/17 08:34 Aspirin (ASA) 81 mg DAILY ORAL 11/28/17 09:00 12/28/17 08:59 11/28/17 08:33 Atorvastatin Calcium (Lipitor) 20 mg BEDTIME ORAL 11/28/17 21:00 12/28/17 20:59 Docusate Sodium (Colace) 100 mg THREE TIMES A DAY ORAL 11/28/17 09:00 12/28/17 08:59 11/28/17 12:34 Heparin Sodium (Porcine) (Heparin 5000 units/ml) 5,000 units EVERY 12 HOURS SUBQ 11/28/17 09:00 12/28/17 08:59 11/28/17 08:40 Hydralazine HCl (Apresoline) 25 mg Q4HR PRN ORAL BP over 160 syst 11/27/17 22:00 12/27/17 21:59 Hydralazine HCl (Apresoline) 50 mg Q8HR ORAL 11/27/17 22:00 12/27/17 21:59 11/28/17 14:20 Irbesartan (Avapro) 75 mg DAILY ORAL 11/28/17 09:00 12/28/17 08:59 11/28/17 08:33 Pantoprazole (Protonix) 40 mg DAILY ORAL 11/28/17 09:00 12/28/17 08:59 11/28/17 08:33 Sevelamer Carbonate (Renvela) 800 mg THREE TIMES A DAY ORAL 11/28/17 09:00 12/28/17 08:59 11/28/17 12:34 Aye Gamboa M.D. Nov 28, 2017 16:28
--- NOTE | 2017-11-28 19:34 | Cardiology Report ---
APPROVED REPORT EXAM: Two-dimensional and M-mode echocardiogram with Doppler and color Doppler. INDICATION Congestive Heart Failure M-Mode DIMENSIONS IVSd1.8 (0.7-1.1cm)Left Atrium (MM)4.8 (1.6-4.0cm) LVDd3.4 (3.5-5.6cm)Aortic Root3.4 (2.0-3.7cm) PWd1.8 (0.7-1.1cm)Aortic Cusp Exc.1.1 (1.5-2.0cm) IVSs2.1 cm LVDs2.6 (2.5-4.0cm) PWs1.8 cm Normal left ventricular chamber size,systolic function and wall motion Left ventricular ejection fraction estimated to be 55-60 %. Moderate concentric left ventricular hypertrophy by 2-D. Small posterior pericardial effusion. Mil left atrial enlargement Borderline right cardiac chamber enlargement . Focal aortic valve sclerosis with decrease cusp excursion. Thickened mitral valve leaflets with normal excursion. Mild, mitral annulus and aortic root calcification. Pulmonic valve not well visualized. Normal tricuspid valve structure. IVC at normal size with physiological collapse . Pacemaker wire present in the right side chambers. A color flow and spectral Doppler study was performed and revealed: No aortic insufficiency. Peak aortic valve gradient of 26 mm Hg and a mean of 13 mmHg. Trace to Mild mitral regurgitation. Normal left ventricular diastolic function . Moderate tricuspid regurgitation. Tricuspid systolic velocities suggests peak right ventricular systolic pressure of 63 mmHg,consistent with severe pulmonary hypertension. No Pulmonic regurgitation present.
--- NOTE | 2017-11-28 19:39 | Cardiology Report ---
APPROVED REPORT EKG Measurement Heart [id number] ND [id number] Sinus rhythm with marked sinus arrhythmia with 1st degree AV block with occasional premature ventricular complexes occasional on conducted pac Left axis deviation Nonspecific intraventricular block Abnormal ECG
[2017-11-28 20:00] VITALS: BP 140/65
[2017-11-28] MEDS ORDERED: Atorvastatin 20mg tab ORAL SCH (21:00)
--- NOTE | 2017-11-28 23:00 | Consultation ---
DATE OF CONSULTATION: 11/28/2017 INFECTIOUS DISEASE CONSULTATION: CONSULTING PHYSICIAN: Aye Gamboa M.D. REFERRING PHYSICIAN: Nelida Hoffman M.D. REASON FOR CONSULTATION: Generalized weakness with fall in a hemodialysis patient. Rule out infectious etiology. HISTORY OF PRESENT ILLNESS: The patient is a 77-year-old, male with past medical history of diabetes, hypertension, CHF, and end-stage renal disease, on hemodialysis presented to the emergency room at [facility] complaining of left-sided chest pain after he fell on his driveway. The patient landed on his chest left side and right knee. He has been complaining of pain at the same location. He also had cough productive of whitish phlegm after the fall since then. No fever or chills. No shortness of breath. No other associated symptoms, but he has been having difficulty walking due to right hip and knee pain from his recent fall. In the emergency room, the patient's temperature was 98.1 with blood pressure of 190/84, saturating 98% on room air. Chest x-ray showed no acute infiltration. Infectious Disease consultation was requested to rule out infectious etiology of his weakness and low-grade fever and to rule out trauma-related pneumonia. REVIEW OF SYSTEMS: A 14-point of systems reviewed were all negative apart from the one I mentioned above in my H and P. PAST MEDICAL HISTORY: Significant for diabetes, hypertension, CHF, and end-stage renal disease, on hemodialysis. PAST SURGICAL HISTORY: Negative. FAMILY HISTORY: Noncontributory. SOCIAL HISTORY: The patient denied any smoking drugs or tobacco. He lives at home with family. ALLERGIES: He has no known drug allergy. MEDICATIONS: He is on atorvastatin, pantoprazole, aspirin, Norvasc, Colace, heparin, Avapro, Apresoline, and Tylenol. LABORATORY DATA: White count of 4.3, hemoglobin of 11.1, and platelet count of 190. BUN of 30 and creatinine of 8.1. IMAGING: Chest x-ray showed no acute disease. PHYSICAL EXAMINATION: VITAL SIGNS: Temperature 97.3, pulse 62, respirations 20, blood pressure 150/63, and saturation 100% on room air. GENERAL: An elderly male, lying in bed, complaining of left-sided chest pain and right knee pain, not in acute distress. HEENT: Normocephalic and atraumatic. Pupils are reactive to light equally. Moist oral mucosa. No exudate. NECK: Supple. No lymphadenopathy. CARDIOVASCULAR: Regular rate and rhythm. No murmur or gallop. LUNGS: Clear bilaterally. No wheezing. No rhonchi. Normal breathing effort. ABDOMEN: Soft, nontender, and nondistended. Normal bowel sounds. No hepatosplenomegaly. No ascites. EXTREMITIES: No edema or cyanosis. Decreased range of motion of right knee and right hip. Minimal right knee swelling and local tenderness over the right hip joint. ASSESSMENT AND RECOMMENDATION: 1. Weakness generalized in a hemodialysis patient. Rule out sepsis. We will send blood culture and urine culture with close monitoring of his symptoms. We will keep off antibiotics for now pending culture results. 2. Status post fall with right hip and knee pain with decreased range of motion. We will order x-ray of the right hip and knee to rule out effusion or fracture. 3. End-stage renal disease, on hemodialysis. Nephrology is following. Continue hemodialysis as needed. 4. COPD. Continue inhalers and oxygen therapy as needed with follow up with Pulmonary. 5. CHF. The patient on hemodialysis. Continue close monitor of daily weight. Nephrology and Cardiology are following. Thank you for the consult. ID will continue to follow. Aye Gamboa M.D. DR: DANG JOB#: [id number] CC:
[2017-11-29] VITALS: BP 118/60
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
[2017-11-29 03:01] LABS: APPEARANCE,URINE TURBID; BILIRUBIN, URINE NEGATIVE (NEGATIVE); COLOR,URINE RED; GLUCOSE, URINE (UA) NEGATIVE (NEGATIVE); KETONES,URINE 1+ (NEGATIVE); LEUKOCYTE ESTERASE ,URINE NEGATIVE (NEGATIVE); NITRITE,URINE NEGATIVE (NEGATIVE); PH,URINE 7 (4.5-8.0); PROTEIN,URINE 4+ (NEGATIVE); UROBILINOGEN,URINE NORMAL MG/DL (0.0-1.0)
[2017-11-29 04:00] VITALS: BP 143/62
[2017-11-29] MEDS: HydrALAZINE 50mg tab ORAL SCH ×2 (05:54→13:43)
[2017-11-29 08:24] VITALS: BP 129/67
[2017-11-29] MEDS: Docusate 100mg cap ORAL SCH ×2 (08:25→12:53)
[2017-11-29] MEDS: Aspirin Baby 81mg ORAL SCH (08:26)
[2017-11-29] MEDS: Heparin 5000 units/ml inj SUBQ SCH (08:26)
--- NOTE | 2017-11-29 08:41 | Diagnostic Imaging Report ---
Indication: Pain, status post fall Technique: 2 views of the right hip Comparison: none Findings: No definite acute fractures. No dislocations. There is mild degenerative joint space narrowing. Vascular calcifications and surgical clips are seen in the right pelvis Impression: No definite acute bony trauma. Note, however, that in elderly osteoporotic patients, nondisplaced hip and pelvic fractures can easily be occult. Consider cross-sectional imaging if there is high clinical suspicion
--- NOTE | 2017-11-29 10:02 | Diagnostic Imaging Report ---
Indication: Pain, status post fall Technique: 3 views of the right knee Comparison: None Findings: There is slight sclerosis along the lateral tibial physeal remnant. No acute fracture lines. No effusions. Joint spaces are preserved. Bones are osteoporotic Impression: Slight sclerosis along the lateral tibial pyocele remnant, probably on the basis of developmental changes or on the basis of old trauma, as discussion with referring physician indicates patient is walking and minimally symptomatic. However, impacted lateral tibial plateau fracture is not completely excludable. Consider cross-sectional imaging if there is high clinical suspicion No acute bony trauma otherwise Findings discussed by phone with Dr. Hoffman at the time of interpretation
--- NOTE | 2017-11-29 11:02 | Nephrology Progress Note ---
Assessment/Plan Problem List: (1) ESRD (end stage renal disease) (2) Fall (3) CHF (congestive heart failure) (4) Weakness generalized (5) COPD (chronic obstructive pulmonary disease) Assessment unchanged Plan 77 y old- HTN ESRD- CHF- Pacer- DM- Atfib Remote kidney transplant fell a week ago - Hypertensive Cardiac disease Weakness right LE Next HD 11/29 today PT OT 2D echo noted Subjective ROS Limited/Unobtainable: No Constitutional: Reports: malaise Objective Objective Last 24 Hour Vital Signs Date Time Temp Pulse Resp B/P (MAP) Pulse Ox O2 Delivery O2 Flow Rate FiO2 11/29/17 08:30 129/67 11/29/17 08:30 59 129/67 11/29/17 08:24 98.6 59 20 129/67 (87) 95 98.6 11/29/17 07:31 65 11/29/17 07:20 Room Air 11/29/17 05:54 143/62 11/29/17 04:00 66 11/29/17 04:00 98.6 63 18 143/62 (89) 95 98.6 11/29/17 00:00 60 11/29/17 00:00 98.2 53 20 118/60 (79) 97 98.2 11/28/17 22:13 139/69 11/28/17 21:00 Room Air 11/28/17 20:00 98.2 60 22 140/65 (90) 100 98.2 11/28/17 20:00 60 11/28/17 16:00 97.2 62 20 139/69 (92) 95 97.2 11/28/17 15:37 60 11/28/17 14:20 150/63 11/28/17 12:00 97.3 62 20 150/63 (92) 100 97.3 11/28/17 11:34 60 Intake and Output 11/28/17 11/29/17 19:00 07:00 Intake Total 630 ml 120 ml Output Total 30 ml Balance 630 ml 90 ml Intake Oral 630 ml 120 ml Output Urine Total 30 ml # Voids 1 Laboratory Tests 11/28/17 23:45: Urine Color Red, Urine Appearance Turbid, Urine pH 7, Urine Specific [place] 1.015, Urine Protein 4+H, Urine Glucose (UA) Negative, Urine Ketones 1+H, Urine Blood 4+H, Urine Nitrite Negative, Urine Bilirubin Negative, Urine Urobilinogen Normal, Urine Leukocyte Esterase Negative, Urine RBC TntcH, Urine WBC 0-2, Urine Squamous Epithelial Cells None, Urine Bacteria Few Height (Feet): 5 Height (Inches): 8.00 Weight (Pounds): 171 General Appearance: no apparent distress Objective no change Felice Kumar MD Nov 29, 2017 11:02
[2017-11-29 12:00] VITALS: BP 142/60
--- NOTE | 2017-11-29 12:17 | General Progress Note ---
Assessment/Plan Assessment/Plan S: my pain is better O: appears comfortable, denies chest pain PHYSICAL EXAMINATION: HEENT: Atraumatic and normocephalic. CHEST: Clear to auscultation. No wheezing. No crackles. HEART: S1 and S2. Regular rate and rhythm. ABDOMEN: Soft. Bowel sounds are normal. No gross organomegaly. NEUROLOGIC: Awake, alert, and oriented x3. MS: diffuse joint hypertrophy, bilateral, ambulates with a cane IMAGING: Chest x-ray dated November 28 reviewed and it is unremarkable. Meds: reviewed and reconciled ASSESSMENT AND PLAN: 1. Chest pain , likely atypical 2. Fall with Trauma. 3. Diabetes. 4. End-stage renal disease, on hemodialysis. 5. Hyperlipidemia. 6. GI and DVT prophylaxis. 7. Knee OA- Diffuse PLAN OF CARE: May followup as out paitent. Needs home PT. We will continue with hemodialysis. I agree with 2D echo and Cardiology assessment. Subjective Allergies: Coded Allergies: No Known Allergies (Unverified , 11/27/17) Objective Last 24 Hour Vital Signs Date Time Temp Pulse Resp B/P (MAP) Pulse Ox O2 Delivery O2 Flow Rate FiO2 11/29/17 08:30 129/67 11/29/17 08:30 59 129/67 11/29/17 08:24 98.6 59 20 129/67 (87) 95 98.6 11/29/17 07:31 65 11/29/17 07:20 Room Air 11/29/17 05:54 143/62 11/29/17 04:00 66 11/29/17 04:00 98.6 63 18 143/62 (89) 95 98.6 11/29/17 00:00 60 11/29/17 00:00 98.2 53 20 118/60 (79) 97 98.2 11/28/17 22:13 139/69 11/28/17 21:00 Room Air 11/28/17 20:00 98.2 60 22 140/65 (90) 100 98.2 11/28/17 20:00 60 11/28/17 16:00 97.2 62 20 139/69 (92) 95 97.2 11/28/17 15:37 60 11/28/17 14:20 150/63 Intake and Output 10/23/18 10/24/18 19:00 07:00 Intake Total 630 ml 120 ml Output Total 30 ml Balance 630 ml 90 ml Intake Oral 630 ml 120 ml Output Urine Total 30 ml # Voids 1 Laboratory Tests 11/28/17 23:45: Urine Color Red, Urine Appearance Turbid, Urine pH 7, Urine Specific [place] 1.015, Urine Protein 4+H, Urine Glucose (UA) Negative, Urine Ketones 1+H, Urine Blood 4+H, Urine Nitrite Negative, Urine Bilirubin Negative, Urine Urobilinogen Normal, Urine Leukocyte Esterase Negative, Urine RBC TntcH, Urine WBC 0-2, Urine Squamous Epithelial Cells None, Urine Bacteria Few Height (Feet): 5 Height (Inches): 8.00 Weight (Pounds): 171 Nelida Hoffman MD Nov 29, 2017 12:17
--- NOTE | 2017-11-29 14:58 | Infectious Diseases Prog Note ---
Assessment/Plan Problems: (1) Weakness generalized Assessment & Plan: rule out sepsis , await blood culture and urine culture , with close monitoring of his symptoms (2) Fall Assessment & Plan: with right hip and knee pain , x ray of the right hip and knee ruled out effusion , and no clear fracture . PT/OT, and pain management (3) ESRD (end stage renal disease) Assessment & Plan: on HD , nephrology is following (4) COPD (chronic obstructive pulmonary disease) Assessment & Plan: continue inhalers and oxygen as needed (5) CHF (congestive heart failure) Assessment & Plan: continue HD , with close monitoring of daily weight Subjective Constitutional: Reports: no symptoms HEENT: Reports: no symptoms Respiratory: Reports: no symptoms Breasts: Reports: no symptoms Cardiovascular: Reports: no symptoms Gastrointestinal/Abdominal: Reports: no symptoms Genitourinary: Reports: no symptoms Neurologic: Reports: weakness Psychiatric: Reports: no symptoms Skin: Reports: no symptoms Endocrine: Reports: no symptoms Hematologic: Reports: no symptoms Musculoskeletal: Reports: pain Allergies: Coded Allergies: No Known Allergies (Unverified , 11/27/17) Objective Vital Signs Last 24 Hour Vital Signs Date Time Temp Pulse Resp B/P (MAP) Pulse Ox O2 Delivery O2 Flow Rate FiO2 11/29/17 13:43 142/60 11/29/17 13:28 Room Air 11/29/17 12:00 98.6 60 20 142/60 (87) 95 98.6 11/29/17 11:46 58 11/29/17 08:30 129/67 11/29/17 08:30 59 129/67 11/29/17 08:24 98.6 59 20 129/67 (87) 95 98.6 11/29/17 07:31 65 11/29/17 07:20 Room Air 11/29/17 05:54 143/62 11/29/17 04:00 66 11/29/17 04:00 98.6 63 18 143/62 (89) 95 98.6 11/29/17 00:00 60 11/29/17 00:00 98.2 53 20 118/60 (79) 97 98.2 11/28/17 22:13 139/69 11/28/17 21:00 Room Air 11/28/17 20:00 98.2 60 22 140/65 (90) 100 98.2 11/28/17 20:00 60 11/28/17 16:00 97.2 62 20 139/69 (92) 95 97.2 11/28/17 15:37 60 Height (Feet): 5 Height (Inches): 8.00 Weight (Pounds): 171 General Appearance: WD/WN, no acute distress HEENT: normocephalic, atraumatic, anicteric, mucous membranes moist, PERRL, EOMI, pharynx normal, supple, no JVD Respiratory/Chest: chest wall non-tender, lungs clear, normal breath sounds, no respiratory distress, decreased breath sounds, accessory muscle use, crackles /rales Cardiovascular: normal peripheral pulses, normal rate, regular rhythm, no gallop/murmur, no JVD Abdomen: normal bowel sounds, soft, non tender, no organomegaly, non distended , no mass, no scars Extremities: no cyanosis, no clubbing Skin: no rash, no lesions, no ulcers Neurologic/Psychiatric: alert, oriented x 3, responsive Lymphatic: no neck adenopathy, no groin adenopathy Musculoskeletal: normal muscle bulk, no effusion Microbiology Date/Time Source Procedure Growth Status 11/27/17 05:30 Blood Blood Culture - Preliminary NO GROWTH AFTER 24 HOURS Resulted 11/27/17 05:20 Blood Blood Culture - Preliminary NO GROWTH AFTER 24 HOURS Resulted Laboratory Tests Test 11/28/17 23:45 Urine Color Red Urine Appearance Turbid Urine pH 7 (4.5-8.0) Urine Specific [place] 1.015 (1.005-1.035) Urine Protein 4+ (NEGATIVE) H Urine Glucose (UA) Negative (NEGATIVE) Urine Ketones 1+ (NEGATIVE) H Urine Blood 4+ (NEGATIVE) H Urine Nitrite Negative (NEGATIVE) Urine Bilirubin Negative (NEGATIVE) Urine Urobilinogen Normal MG/DL (0.0-1.0) Urine Leukocyte Esterase Negative (NEGATIVE) Urine RBC Tntc /HPF (0 - 0) H Urine WBC 0-2 /HPF (0 - 0) Urine Squamous Epithelial Cells None /LPF (NONE/OCC) Urine Bacteria Few /HPF (NONE) Current Medications Medications (Trade) Dose Ordered Sig/Rj Route PRN Reason Start Time Stop Time Status Last Admin Dose Admin Acetaminophen (Tylenol) 650 mg Q4H PRN ORAL Mild Pain/Temp > 100.5 11/27/17 22:00 12/27/17 21:59 Amlodipine Besylate (Norvasc) 10 mg DAILY ORAL 11/28/17 09:00 12/28/17 08:59 11/28/17 08:34 Aspirin (ASA) 81 mg DAILY ORAL 11/28/17 09:00 12/28/17 08:59 11/29/17 08:26 Atorvastatin Calcium (Lipitor) 20 mg BEDTIME ORAL 11/28/17 21:00 12/28/17 20:59 11/28/17 20:29 Docusate Sodium (Colace) 100 mg THREE TIMES A DAY ORAL 11/28/17 09:00 12/28/17 08:59 11/29/17 12:53 Heparin Sodium (Porcine) (Heparin 5000 units/ml) 5,000 units EVERY 12 HOURS SUBQ 11/28/17 09:00 12/28/17 08:59 11/29/17 08:26 Hydralazine HCl (Apresoline) 25 mg Q4HR PRN ORAL BP over 160 syst 11/27/17 22:00 12/27/17 21:59 Hydralazine HCl (Apresoline) 50 mg Q8HR ORAL 11/27/17 22:00 12/27/17 21:59 11/29/17 05:54 Irbesartan (Avapro) 75 mg DAILY ORAL 11/28/17 09:00 12/28/17 08:59 11/28/17 08:33 Pantoprazole (Protonix) 40 mg DAILY ORAL 11/28/17 09:00 12/28/17 08:59 11/29/17 08:26 Sevelamer Carbonate (Renvela) 800 mg THREE TIMES A DAY ORAL 11/28/17 09:00 12/28/17 08:59 11/29/17 12:53 Aye Gamboa M.D. Nov 29, 2017 14:58
[2017-11-29 15:43] VITALS: BP 114/62
--- NOTE | 2017-11-29 19:45 | Cardiology Progress Note ---
Assessment/Plan Assessment/Plan 1. Noncardiac chest pain, likely musculoskeletal origin. 2. Mild aortic stenosis per our echo in this facility, with BLAIR at 1.8 cm2. Severe pulmonary HTN likely is due to ESRD rather than given the severity of . No treatment is required at this time. 3. End-stage renal disease on hemodialysis. 4. History of hypertension. Subjective Subjective Sinus bradycardia at 59. Objective Last 24 Hour Vital Signs Date Time Temp Pulse Resp B/P (MAP) Pulse Ox O2 Delivery O2 Flow Rate FiO2 11/29/17 15:43 98.4 60 20 114/62 (79) 95 11/29/17 15:12 59 11/29/17 13:43 142/60 11/29/17 13:28 Room Air 11/29/17 12:00 98.6 60 20 142/60 (87) 95 98.6 11/29/17 11:46 58 11/29/17 08:30 129/67 11/29/17 08:30 59 129/67 11/29/17 08:24 98.6 59 20 129/67 (87) 95 98.6 11/29/17 07:31 65 11/29/17 07:20 Room Air 11/29/17 05:54 143/62 11/29/17 04:00 66 11/29/17 04:00 98.6 63 18 143/62 (89) 95 98.6 11/29/17 00:00 60 11/29/17 00:00 98.2 53 20 118/60 (79) 97 98.2 11/28/17 22:13 139/69 11/28/17 21:00 Room Air 11/28/17 20:00 98.2 60 22 140/65 (90) 100 98.2 11/28/17 20:00 60 Intake and Output 11/28/17 11/29/17 19:00 07:00 Intake Total 630 ml 120 ml Output Total 30 ml Balance 630 ml 90 ml Intake Oral 630 ml 120 ml Output Urine Total 30 ml # Voids 1 2D Echo: EF 55-60%, Mod LVH, Mild LAE, RVSP 63 mmHg, Nl LVDD, small Angela. Eff. Laboratory Tests Test 11/28/17 23:45 Urine Color Red Urine Appearance Turbid Urine pH 7 (4.5-8.0) Urine Specific [place] 1.015 (1.005-1.035) Urine Protein 4+ (NEGATIVE) H Urine Glucose (UA) Negative (NEGATIVE) Urine Ketones 1+ (NEGATIVE) H Urine Blood 4+ (NEGATIVE) H Urine Nitrite Negative (NEGATIVE) Urine Bilirubin Negative (NEGATIVE) Urine Urobilinogen Normal MG/DL (0.0-1.0) Urine Leukocyte Esterase Negative (NEGATIVE) Urine RBC Tntc /HPF (0 - 0) H Urine WBC 0-2 /HPF (0 - 0) Urine Squamous Epithelial Cells None /LPF (NONE/OCC) Urine Bacteria Few /HPF (NONE) Microbiology Date/Time Source Procedure Growth Status 11/27/17 05:30 Blood Blood Culture - Preliminary NO GROWTH AFTER 24 HOURS Resulted 11/27/17 05:20 Blood Blood Culture - Preliminary NO GROWTH AFTER 24 HOURS Resulted Objective HEENT: Atraumatic and normocephalic. Pupils are equal, round, and reactive to light and accommodation. Extraocular muscles intact. NECK: JVP less than 5 cm. Bilateral carotid bruits. CARDIOVASCULAR: Normal S1, S2. There is a 3/6 ejection systolic murmur at the left sternal border with radiation to the carotid. Irregular rate and rhythm. LUNGS: Clear to auscultation bilaterally. CHEST: Presence of a pacemaker in the right pectoral area. ABDOMEN: Soft, nontender, and nondistended. No hepatosplenomegaly. Positive bowel sounds. EXTREMITIES: Right upper extremity AV fistula is present with a good thrill. Lower extremity, no evidence of edema, clubbing, or cyanosis. William Sheets MD Nov 29, 2017 19:45
--- NOTE | 2017-11-30 11:56 | Discharge Summary ---
Discharge Summary Discharge Summary _ DATE OF ADMISSION: 11/27/2017 DATE OF DISCHARGE: 11/29/2017 CONSULTANTS: Dr. William Kumar BRIEF HOSPITAL COURSE: Patient was a 77-year-old male, with history of renal failure, CHF, hypertension , interstitial lung disease and diabetes, fell and had trauma to the right side of the chest wall. The patient reported pain was made worse with deep breath and was complaining of pain after hemodialysis. He denied any nausea, vomiting , diarrhea or constipation. On evaluation at ED, blood pressure was 190/84. Blood work did not show any leukocytosis, hemoglobin and hematocrit were stable. Troponin was 0.045. BNP 18,997. BUN was 23, creatinine 6.2. He had an EKG that showed normal sinus rhythm, with no acute changes. Chest x-ray done showed presence of pacemaker. He was given aspirin. He was admitted for evaluation of chest pain, concerning for acute coronary syndrome in the setting of coronary artery disease. He underwent cardiac evaluation. Troponin was negative x 2. Chest pain was pleuritic and occurred after a fall. 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 Echocardiogram done showed ejection fraction of 55-60%, with moderate tricuspid regurgitation and right ventricular systolic pressure of 63 mmHg, consistent with severe pulmonary hypertension. Patient has severe pulmonary hypertension likely due to end-stage renal disease. [place] was ruled out. He was given hydralazine, norvasc and Avapro for blood pressure. He was continued on statins. He was pancultured for possible infectious disease. He was observed off antibiotic treatment. Blood culture did not isolate any growth. Right knee x-ray was negative for acute bony trauma. There was slight sclerosis along the lateral tibia. Hip x-ray was negative for acute fractures. No dislocation. There was mild degenerative joint space narrowing. He was given PT and OT. He was given inpatient hemodialysis. He was eventually cleared for discharge home with PT. FINAL DIAGNOSES: Chest pain, likely musculoskeletal in origin. Hyperlipidemia Fall with trauma Diabetes mellitus Hyperlipidemia Diffuse knee osteoarthritis Mild aortic stenosis End-stage renal disease on hemodialysis Hypertension Weakness COPD Chronic diastolic CHF DISPOSITION: Patient was discharged home with home health. DISCHARGE INSTRUCTIONS: Follow up within a week. I have been assigned to dictate discharge summary on this account, and I was not involved in the patient's management. Shruthi Fernandez NP Nov 30, 2017 11:56
== END 2017-11-29 16:56 | disposition home health service (06) | DRG 913 ==
LOC: EDBD 17:51 → EMR 18:55 → 2E 18:56 → EDBEDREQ 20:31
PROC: 5A1D70Z Performance of Urinary Filtration, Intermittent, Less than 6 Hours Per Day (ICD-10-PCS; principal; 2017-11-29)
DX: S29.9XXA Unspecified injury of thorax, initial encounter (principal); N18.6 End stage renal disease; I13.2 Hypertensive heart and chronic kidney disease with heart failure and with stage 5 chronic kidney disease, or end stage renal disease; I50.32 Chronic diastolic (congestive) heart failure; Z94.0 Kidney transplant status; R07.89 Other chest pain; W19.XXXA Unspecified fall, initial encounter; E11.22 Type 2 diabetes mellitus with diabetic chronic kidney disease; Z99.2 Dependence on renal dialysis; E78.5 Hyperlipidemia, unspecified; I36.1 Nonrheumatic tricuspid (valve) insufficiency; I27.20 Pulmonary hypertension, unspecified; M17.10 Unilateral primary osteoarthritis, unspecified knee; I35.0 Nonrheumatic aortic (valve) stenosis; R53.1 Weakness; J44.9 Chronic obstructive pulmonary disease, unspecified; Z95.0 Presence of cardiac pacemaker
CPT/HCPCS: 36415; 71045; 80053; 80061; 81001; 82550; 82553; 82607; 82728; 82746; 82977; 83036; 83735; 83880; 84100; 84443; 84484; 84550; 85025; 86140; 87040; 87081; 93005; 93306; 96374; 99285